=== PATIENT | male | born 1985 | race Caucasian/White ===

== ENCOUNTER 2023-10-31 06:11 | Day surgery (SDC) | payer BC, SELFPAY ==
[2023-10-31 06:30] VITALS: BMI 25.4
[2023-10-31] MEDS: SODIUM CHLORIDE 0.9 % (FLUSH) 10 ML SYRINGE IVF (06:30)
[2023-10-31] MEDS: LACTATED RINGERS 1000 ML 1,000 ML 100 ML IV (06:30)
[2023-10-31 06:48] VITALS: BP 131/81; PULSE 91; RESP 16; TEMP 36.6; O2SAT 95
[2023-10-31] MEDS: CEFAZOLIN 2 GM INJ IVP (07:35)
[2023-10-31] MEDS: BUPIVACAINE 0.25% 30 ML 3.5 ML INJECTION (07:42)
--- NOTE | 2023-10-31 07:58 | W.PM.H&PU ---
History & Physical Update History & Physical Update H&P Reviewed and patient assessed: No changes noted
--- NOTE | 2023-10-31 07:58 | PM.GSPRC ---
Operative Note Date of procedure: 10/31/23 Pre-op diagnosis: Right groin mass Post-op diagnosis: Same, sebaceous cyst Type of Procedure: Excision of right groin mass Indications: Patient is a 38-year-old male who presented to clinic with an enlarging right groin mass. Given location and clinical characteristics concern for abnormal lymphoma verses lipoma versus sebaceous cyst. Risks and benefits of excision in the operating room were discussed at length with the patient. Risks included, but were not limited to: Bleeding, infection, risk of damage to surrounding structures, risk of recurrence and seroma formation. All questions and concerns were addressed with patient agreeing to proceed. Procedure Description: After discussing the risks and benefits of the procedure, the patient signed informed consent.? The operative site was marked and the patient was brought to the operating room and placed on the operating table in supine position.? Care was taken to pad the patient's pressure points.?? The patient was then given sedation by anesthesia.?? The operative site was then prepped and draped in the usual sterile fashion.? A time-out was then performed. Mohs surgical field was anesthetized with a mixture 1% lidocaine and 0.25% Marcaine. An incision was made directly over the mass. Dissection was carried through subcutaneous tissues sharply. The mass was circumferentially dissected free. Findings were consistent with a sebaceous cyst. The specimen was passed off the back table to be sent to pathology. The surgical field was irrigated. Hemostasis was assured. The incision measured 2 cm in size. The incision was closed in layers with interrupted 3 0 Vicryl and running 4-0 Monocryl. Dermabond was placed over top. ? The patient was then woken and transported to the recovery area in stable condition. ? The patient tolerated the procedure well. Findings: Sebaceous cyst of the right groin. Anesthesia: MAC and local Surgeon: Angie Adams MD Estimated blood loss (mL): 1 Additional Specimen Information: Right groin mass Condition: stable Disposition: same day
[2023-10-31 08:00] VITALS: BP 122/82; PULSE 74; RESP 16; TEMP 36.2; O2SAT 94
--- NOTE | 2023-10-31 08:01 | W.ANESCHARGE ---
Anesthesia Charges Start Date/Time Anesthesia Start Date: 10/31/23 Anesthesia Start Time: 07:27 Stop Date/Time Anesthesia Stop Date: 10/31/23 Anesthesia Stop Time: 08:04
[2023-10-31 08:15] VITALS: BP 123/76; PULSE 80; RESP 16; O2SAT 96
--- NOTE | 2023-10-31 08:19 | W.ANESCHARGE ---
Anesthesia Charges Start Date/Time Anesthesia Start Date: 10/31/23 Anesthesia Start Time: 07:27 Stop Date/Time Anesthesia Stop Date: 10/31/23 Anesthesia Stop Time: 08:04
[2023-10-31 08:30] VITALS: BP 128/60; PULSE 80; RESP 16; TEMP 36.2; O2SAT 97
--- NOTE | 2023-10-31 08:49 | SUR.OPER ---
PATIENT QUESTIONS ANSWERED SATISFACTORILY PREOPERATIVELY. PATIENT BROUGHT TO OR #1 PER CART. Patient positioned supine on OR #1 bed. The perioperative team supported arms bilaterally on arm boards. Final approval of positioning by surgeon.
== END 2023-10-31 08:41 | disposition home or self-care (01) ==
PROVIDERS: PCP Student in an Organized Health Care Education/Training Program; Visit Provider Surgery
PROC: (CPT 11406; principal; 2023-10-31 07:30)
DX: L72.3 Sebaceous cyst (principal)
CPT/HCPCS: 11406; 12031; 00400; 88304; J0665; J0690; J1100; J1885; J2405; J2704; J3010; J7120